=== PATIENT | female | born 1985 | race Caucasian/White ===

== ENCOUNTER → 2018-12-10 | Outpatient (REF) | payer BC ==
[2018-12-10 13:48] LABS: BASO # 0.1 10^3/uL (0.0-0.2); BASO % 0.6 % (0.0-1.0); EOS # 0.1 10^3/uL (0.0-0.50); EOS % 0.6 % (0.0-3.0); HEMATOCRIT 37.8 % (36.0-47.0); HEMOGLOBIN 11.9 g/dl (12.0-15.5); LYMPH # 3.1 10^3/uL (1.5-4.5); LYMPH % 34.3 % (24.0-44.0); MEAN CORPUSCULAR HEMOGLOBIN 25.9 pg (27.0-33.0); MEAN CORPUSCULAR HGB CONC 31.5 g/dl (32.0-36.5); MEAN CORPUSCULAR VOLUME 82.2 fl (80.0-96.0); MONO # 0.4 10^3/uL (0.0-0.8); MONO % 4.4 % (0.0-5.0); NEUTROPHILS # 5.4 10^3/uL (1.8-7.7); NEUTROPHILS % 59.9 % (36.0-66.0); PLATELET COUNT, AUTOMATED 400 10^3/uL (150-450)
[2018-12-10 14:48] LABS: ERYTHROCYTE SEDIMENTATION RATE 44 mm/hr (0-20)
[2018-12-11 12:32] LABS: DRVV SCREEN 42.8 SEC
[2018-12-12 00:07] LABS: ANA (HEP2) Positive (.); TOXOPLASMA IgG ABY 80.7 IU/mL (0.0-7.1)
[2018-12-12 08:06] LABS: IgG SERUM (part of Subclasses) 1233 mg/dL (700-1600); IgG Subclass 1 706 mg/dL (248-810); IgG Subclass 2 453 mg/dL (130-555); IgG Subclass 3 102 mg/dL (15-102); IgG Subclass 4 26 mg/dL (2-96)
== END ==
LOC: M SFHCPLAZ 10:30
PROVIDERS: ATTEND Internal Medicine Infectious Disease
DX: B58.9 Toxoplasmosis, unspecified (principal); N96 Recurrent pregnancy loss